=== PATIENT | male | born 2000 | race Hispanic/Latino ===

== ENCOUNTER 2022-07-03 21:11 | Emergency (ER) | payer SELFPAY ==
[~2022-07-03] VITALS: Ht 180.3 cm; Wt 87.1 kg
[2022-07-03] MEDS ORDERED: IBUPROFEN 600 MG TAB PO STA (22:12)
[2022-07-03] MEDS ORDERED: ACETAMINOPHEN 325 MG TAB PO ONE (22:15)
[2022-07-03] MEDS ORDERED: IBUPROFEN 600 MG TAB ONE (22:24)
[2022-07-03 22:52] LABS: INFLUENZAE A&B ANTIGEN (RAPID) POSITIVE FLU A (NEGATIVE); STREPTOCOCCUS GRP A ANTIGEN NEGATIVE (NEGATIVE)
[2022-07-03] MEDS ORDERED: XOFLUZA80 MG PO (23:09)
== END 2022-07-03 23:57 | disposition home or self-care (01) ==
LOC: ER 21:20
DX: R50.9 Fever, unspecified (principal); J10.1 Influenza due to other identified influenza virus with other respiratory manifestations; R05.9 Cough, unspecified; Z20.822 Contact with and (suspected) exposure to COVID-19
CPT/HCPCS: 0223U; 36415; 83518; 87070; 87400; 99283